=== PATIENT | male | born 1990 | race Hispanic/Latino ===

== ENCOUNTER 2019-08-08 07:46 | Inpatient (IN) | payer SELFPAY ==
[2019-08-08] MEDS ORDERED: Ondansetron PF 4 MG/2 ML Vial ONE (08:28)
[2019-08-08] MEDS ORDERED: Morphine 4 MG/ML VIAL ONE (08:28)
[2019-08-08] MEDS ORDERED: Acetaminophen 500 MG TAB ONE (08:28)
[2019-08-08 09:29] LABS: Anion Gap 11 mmol/L (10-20); BUN (Urea Nitrogen) 5 mg/dL (8.9-20.6); Calc. Creatinine Clearance 0 mL/min (70-130); Carbon Dioxide 27 mmol/L (22-29); Chloride 105 mmol/L (98-107); Estimated GFR-MDRD Greater than 90; Glucose 96 mg/dL (70-105); Potassium 4.4 mmol/L (3.5-5.1); Sodium 139 mmol/L (136-145)
[2019-08-08 09:41] LABS: #Eosinphils 0.1 thou/uL (0.0-0.7); #Lymphocytes 1.8 thou/uL (1.20-3.40); #Monocytes 1.1 thou/uL (0.11-0.59); #Neutrophils 8.3 thou/uL (1.40-6.50); %Basophils 0.1 % (0.0-1.0); %Eosinophils 0.5 % (0.0-10.0); %Lymphocytes 15.9 % (21.0-51.0); %Monocytes 9.4 % (0.0-10.0); %Neutrophils 74.1 % (42.0-75.0); Hemoglobin 13.1 g/dL (14.0-18.0); Mean Corpuscular HGB CONC 33.5 g/dL (32.0-36.0); Mean Corpuscular Hemoglobin 30.3 pg (27.0-31.0); Mean Corpuscular Volume 90.4 fL (78.0-98.0); Mean Platelet Volume 9.4 fL (7.4-10.4); Platelet Count 209 thou/uL (130-400); RBC Distribution Width 11.2 % (11.5-14.5); Red Blood Cell (RBC) Count 4.32 mill/uL (4.70-6.10); White Blood Cell (WBC) Count 11.2 thou/uL (4.8-10.8)
[2019-08-08] MEDS ORDERED: Ondansetron PF 4 MG/2 ML Vial IVP PRN (10:15)
[2019-08-08] MEDS ORDERED: Ondansetron ODT 4 MG TAB PO PRN (10:15)
[2019-08-08] MEDS ORDERED: Sodium Chloride 0.9% 1,000 ML IV SCH (10:15)
[2019-08-08] MEDS ORDERED: Morphine 2 MG/ML SYRINGE SLOW IVP PRN (10:21)
[2019-08-08 10:48] VITALS: BMI 18.8
--- NOTE | 2019-08-08 11:04 | PDOC.HHP ---
Hospitalist HPI - History of Present Illness Dental pain History of Present Illness: PCP: LISA The patient is a 28/M with no significant PMH presents for above complaint. Patient reports developing left sided dental pain and facial swelling for two weeks. Reports associated trismus and fever/chills over the past 4 days. Denies any SOB or difficulty breathing. He was prescribed several oral antibiotics over the past week, including clarithromycin, ciprofloxacin and amoxicillin with no improvement of symptoms. He called his dentist in [place] and was told to go to the Emergency Department. Reports able to eat soup and soft foods, denies any nausea, vomiting or diarrhea. 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 There is adjacent surrounding inflammatory changes with a loculated fluid collection/ abscess along the inferior aspect of the left angle the mandible adjacent to and possibly involving the inferior posterior aspect of the masseter muscle. [facility] ER T 101.1F, HR 92 WBC 10.0 2L IVF Morphine, tylenol and zofran blood cultures drawn Hospitalist ROS - Review of Systems Constitutional: reports: fever, chills Eyes: denies: pain, vision change, conjunctivae inflammation, eyelid inflammation, redness, other ENT: reports: mouth pain, mouth swelling. denies: ear discharge, nose congestion Respiratory: denies: cough, dry, shortness of breath, hemoptysis, SOB with excertion, pleuritic pain, sputum, wheezing, other Cardiovascular: denies: chest pain, palpitations, orthopnea, paroxysmal noc. dyspnea, edema, light headedness, other Gastrointestinal: denies: nausea, vomiting, abdominal pain, diarrhea, constipation, melena, hematochezia, other Genitourinary: denies: dysuria, frequency, incontinence, hematuria, retention, other Musculoskeletal: reports: neck pain Neurological: denies: weakness, numbness, incoordination, change in speech, confusion, seizures, other Hospitalist History - Past Medical History Source: patient, family Cardiac: reports: no pertinent history Pulmonary: reports: no pertinent history [employer]: reports: no pertinent history Gastrointestinal: reports: no pertinent history Heme/Onc: reports: no pertinent history Hepatobiliary: reports: no pertinent history Psych: reports: no pertinent history Musculoskeletal: reports: no pertinent history Rheumatologic: reports: no pertinent history Infectious Disease: reports: no pertinent history ENT: reports: no pertinent history Renal/: reports: no pertinent history Endocrine: reports: no pertinent history Dermatology: reports: no pertinent history - Past Surgical History Past Surgical History: reports: Hernia Repair (as child) - Family History Family History: reports: no pertinent history - Social History Smoking Status: Never smoker Alcohol: reports: None Drugs: reports: none Living Situation: With Family (Lives in [place] with girlfriend) Activity level: independent ambulation - Exam General Appearance: NAD, awake alert ENT: normocephalic atraumatic ENT - other findings: Left facial swelling with some erythema, TTP, trismus Neck - other findings: Left side of neck soft tissue swelling, TTP, mild erythema Heart: RRR, no murmur, no gallops, no rubs Respiratory: CTAB, no wheezes, no rales, no ronchi Gastrointestinal: soft, non-tender, non-distended, normal bowel sounds, no guarding, no rigidity Extremities: no cyanosis, no clubbing, no edema Skin: normal turgor Musculoskeletal: normal tone, normal strength Psychiatric: normal affect, A&O x 3 Hospitalist Results - Labs Result Diagrams: 08/08/19 08:44 08/08/19 08:44 Lab results: WBC 11.2 thou/uL (4.8-10.8) H 08/08/19 08:44 Hgb 13.1 g/dL (14.0-18.0) L 08/08/19 08:44 Hct 39.1 % (42.0-52.0) L 08/08/19 08:44 MCV 90.4 fL (78.0-98.0) 08/08/19 08:44 Plt Count 209 thou/uL (130-400) 08/08/19 08:44 Neutrophils % 74.1 % (42.0-75.0) 08/08/19 08:44 Sodium 139 mmol/L (136-145) 08/08/19 08:44 Potassium 4.4 mmol/L (3.5-5.1) 08/08/19 08:44 Chloride 105 mmol/L (98-107) 08/08/19 08:44 Carbon Dioxide 27 mmol/L (22-29) 08/08/19 08:44 BUN 5 mg/dL (8.9-20.6) L 08/08/19 08:44 Creatinine 0.79 mg/dL (0.7-1.3) 08/08/19 08:44 Glucose 96 mg/dL (70-105) 08/08/19 08:44 Calcium 9.0 mg/dL (7.8-10.44) 08/08/19 08:44 Hospitalist H&P A/P - Plan Plan: Impression: Sepsis Left mandibular abscess Plan: IV antibiotics IVF Consult OMF surgery Awaiting blood cultures Analgesia and Fever control NPO GI prophylaxis DVT prophylaxis, starting tomorrow BMP, CBC in am Full Code Mahendra BENITEZ, .
[2019-08-08] MEDS: Ketorolac Tromethamine 30 MG/ML VIAL IVP PRN ×2 (12:37→17:42)
[2019-08-08] MEDS: Sodium Chloride 0.9% 1,000 ML IV SCH (12:39)
[2019-08-08] MEDS: Clindamycin/D5W 900 MG in Premix Bag 1 BAG IVPB SCH ×2 (12:46→20:27)
[2019-08-08] MEDS ORDERED: Vancomycin 1 GM in Premix Bag 1 BAG IVPB SCH (17:00)
[2019-08-08] MEDS: Famotidine/PF 20 mg/2ml Vial SLOW IVP SCH (20:29)
[2019-08-08] MEDS: Morphine 2 MG/ML SYRINGE SLOW IVP PRN (20:29)
[2019-08-08] MEDS ORDERED: Acetaminophen 650 MG Suppository PR PRN (20:46)
[2019-08-08] MEDS: Acetaminophen 325 MG TAB PO PRN (21:18)
[2019-08-08 21:32] LABS: Lactic Acid 0.7 mmol/L (0.5-2.2)
[2019-08-09] MEDS: Ketorolac Tromethamine 30 MG/ML VIAL IVP PRN ×3 (01:16→18:51)
[2019-08-09] MEDS: Sodium Chloride 0.9% 1,000 ML IV SCH ×3 (01:22→21:07)
[2019-08-09] MEDS: Clindamycin/D5W 900 MG in Premix Bag 1 BAG IVPB SCH ×3 (03:41→20:58)
[2019-08-09 05:13] LABS: #Lymphocytes 0.7 thou/uL (1.20-3.40); #Monocytes 0.2 thou/uL (0.11-0.59); #Neutrophils 10.2 thou/uL (1.40-6.50); %Basophils 0.1 % (0.0-1.0); %Eosinophils 0.2 % (0.0-10.0); %Lymphocytes 6.6 % (21.0-51.0); %Monocytes 1.7 % (0.0-10.0); %Neutrophils 91.5 % (42.0-75.0); Hemoglobin 12.7 g/dL (14.0-18.0); Mean Corpuscular HGB CONC 34.5 g/dL (32.0-36.0); Mean Corpuscular Hemoglobin 30.9 pg (27.0-31.0); Mean Corpuscular Volume 89.8 fL (78.0-98.0); Mean Platelet Volume 9.2 fL (7.4-10.4); Platelet Count 211 thou/uL (130-400); RBC Distribution Width 10.9 % (11.5-14.5); Red Blood Cell (RBC) Count 4.12 mill/uL (4.70-6.10); White Blood Cell (WBC) Count 11.1 thou/uL (4.8-10.8)
[2019-08-09 05:23] LABS: Anion Gap 12 mmol/L (10-20); BUN (Urea Nitrogen) 5 mg/dL (8.9-20.6); Calc. Creatinine Clearance 116 mL/min (70-130); Calcium 9.2 mg/dL (7.8-10.44); Carbon Dioxide 25 mmol/L (22-29); Chloride 107 mmol/L (98-107); Estimated GFR-MDRD Greater than 90; Glucose 146 mg/dL (70-105); Potassium 4.4 mmol/L (3.5-5.1); Sodium 140 mmol/L (136-145)
[2019-08-09] MEDS ORDERED: Acetaminophen 650 MG/20.3 ML UDCUP PO PRN (07:56)
[2019-08-09] MEDS ORDERED: Enoxaparin Sodium 40 MG/0.4 ML SYRINGE SC SCH ×2 (09:00→21:00)
[2019-08-09] MEDS: Famotidine/PF 20 mg/2ml Vial SLOW IVP SCH ×2 (09:58→19:42)
[2019-08-09] MEDS: Saccharomyces boulardii 250 MG CAP PO SCH (10:17)
--- NOTE | 2019-08-09 10:51 | PDOC.HOSPP ---
- Subjective Encounter Date: 08/09/19 Encounter Time: 10:45 Subjective: Patient seen and examined for sepsis, left mandibular abscess. Reports mildly elevated temperature last night. Reports pain controlled with steroids and toradol. Overall feeling much better. No new complaints. - Objective Vital Signs & Weight: Vital Signs (12 hours) Temp Pulse Resp BP Pulse Ox 08/09/19 08:00 97.9 F 76 18 121/60 100 08/09/19 03:49 97.3 F L 65 14 103/51 L 97 08/08/19 23:55 99.2 F 74 16 120/55 L 98 Weight Weight 120 lb Result Diagrams: 08/09/19 04:25 08/09/19 04:25 Hospitalist ROS - Review of Systems Constitutional: reports: fever, chills ENT: reports: other (able to control secretions) Respiratory: reports: cough, shortness of breath (no stridor) Cardiovascular: reports: chest pain, palpitations Gastrointestinal: reports: nausea, vomiting - Medication Medications: Active Medications Generic Name Dose Route Start Last Admin Trade Name Freq PRN Reason Stop Dose Admin Acetaminophen 650 mg 08/08/19 20:46 08/08/19 21:18 Tylenol PO 650 mg Q4H PRN Administration Headache/Fever or Pain Famotidine 20 mg 08/08/19 21:00 08/09/19 09:58 Pepcid SLOW IVP 20 mg Q12HR YANIRA Administration Clindamycin Phosphate/Dextrose 50 mls @ 100 mls/hr 08/08/19 12:00 08/09/19 03 :41 900 mg/ Device IVPB 50 mls 0400,1200,2000 YANIRA Administration Sodium Chloride 1,000 mls @ 100 mls/hr 08/08/19 12:01 08/09/19 01:22 Normal Saline 0.9% IV 1,000 mls .Q10H YANIRA Administration Ketorolac Tromethamine 15 mg 08/08/19 11:04 08/09/19 09:56 Toradol IVP 08/13/19 11:05 15 mg Q6H PRN Administration Pain (1-5) &/or fever 100.4f Morphine Sulfate 2 mg 08/08/19 11:05 08/08/19 20:29 Morphine SLOW IVP 2 mg Q3H PRN Administration Moderate to Severe Pain (6-10) Saccharomyces Boulardii 250 mg 08/09/19 09:00 08/09/19 10:17 Florastor PO Not Given DAILY YANIRA Sodium Chloride 10 ml 08/09/19 09:00 08/09/19 10:11 Flush - Normal Saline IVF 10 ml Q12HR YANIRA Administration - Exam General Appearance: NAD, awake alert Neck - other findings: Soft tissue swelling to left mandibular region & neck, mildly TTP, trismus Heart: RRR, no murmur, no gallops, no rubs Respiratory: CTAB, no wheezes, no rales, no ronchi Musculoskeletal: normal tone, normal strength Psychiatric: normal affect, A&O x 3 Hosp A/P - Plan Impression: Left mandibular abscess Sepsis Plan: Continue IV antibiotics Analgesia as needed Cultures no growth at 24 hours OMF surgery consult appreciated NPO Procedural I&D with tooth extractions -Dr. Joyce GI/DVT prophylaxis
[2019-08-09] MEDS ORDERED: Glycopyrrolate 0.2 MG/ML 5 ML SYRINGE ONE (11:49)
[2019-08-09] MEDS ORDERED: PROPOFOL 200 MG/20 ML VIAL ONE (11:49)
[2019-08-09] MEDS ORDERED: Dexamethasone 20 MG/5 ML VIAL ONE (11:49)
[2019-08-09] MEDS ORDERED: Ondansetron PF 4 MG/2 ML Vial ONE (11:49)
[2019-08-09] MEDS ORDERED: Lidocaine 1% PF 5 ML VIAL ONE (11:49)
[2019-08-09] MEDS: Morphine 2 MG/ML SYRINGE SLOW IVP PRN ×2 (12:53→18:15)
[2019-08-09] MEDS ORDERED: Fentanyl 100 MCG/2 ML VIAL ONE ×2 (14:57→17:19)
[2019-08-09] MEDS ORDERED: SUGAMMADEX SODIUM 200 MG/2 ML VIAL ONE (14:57)
[2019-08-09] MEDS ORDERED: Lidocaine 1% w/Epinephrine 1:100K 20 ML VIAL ONE (15:20)
[2019-08-09] MEDS ORDERED: Sodium Chloride 0.9% 10 ML ONE (15:20)
[2019-08-09] MEDS ORDERED: Bacitracin Zinc Ointment 30 gm TUBE ONE (15:20)
[2019-08-09] MEDS ORDERED: Chlorhexidine Gluconate 15 ML UDCUP SSP ONE (15:20)
[2019-08-09] MEDS ORDERED: Lidocaine 2% Jelly 5 ML TUBE ONE (15:22)
[2019-08-09] MEDS ORDERED: AFRIN NASAL MIST 15 ML BOT ONE (15:22)
[2019-08-09] MEDS ORDERED: Promethazine HCl 25 MG/ML VIAL SLOW IVP PRN (16:29)
[2019-08-09] MEDS ORDERED: Ketorolac Tromethamine 30 MG/ML VIAL IVP PRN (16:29)
[2019-08-09] MEDS ORDERED: Ondansetron HCl/PF 4 MG/2 ML Vial IVP PRN (16:29)
[2019-08-09] MEDS ORDERED: Meperidine HCl/PF 25 MG/ML VIAL SLOW IVP PRN (16:29)
[2019-08-09] MEDS ORDERED: Promethazine HCl 25 MG/ML VIAL ONE (17:19)
[2019-08-09] MEDS ORDERED: Hydrocodone-Acetamin 15 ML UDCUP PO PRN (19:18)
[2019-08-09] MEDS: Morphine 4 MG/ML VIAL SLOW IVP PRN ×2 (19:41→23:42)
[2019-08-09] MEDS: Hydrocodone-Acetamin 15 ML UDCUP PO PRN (20:57)
[2019-08-09] MEDS: Chlorhexidine Gluconate 15 ML UDCUP SSP SCH (20:59)
[2019-08-10] MEDS: Clindamycin/D5W 900 MG in Premix Bag 1 BAG IVPB SCH ×3 (03:00→20:32)
[2019-08-10] MEDS: Hydrocodone-Acetamin 15 ML UDCUP PO PRN ×4 (03:00→23:28)
[2019-08-10] MEDS: Sodium Chloride 0.9% 1,000 ML IV SCH ×3 (04:15→23:29)
[2019-08-10] MEDS: Morphine 4 MG/ML VIAL SLOW IVP PRN (06:32)
[2019-08-10] MEDS: Famotidine/PF 20 mg/2ml Vial SLOW IVP SCH ×2 (09:13→20:23)
[2019-08-10] MEDS: Chlorhexidine Gluconate 15 ML UDCUP SSP SCH ×2 (09:14→20:32)
[2019-08-10] MEDS: Saccharomyces boulardii 250 MG CAP PO SCH (09:14)
--- NOTE | 2019-08-10 10:26 | PDOC.HOSPP ---
- Subjective Encounter Date: 08/10/19 Encounter Time: 10:10 Subjective: Patient seen and examined for sepsis, left neck abscess. s/p I&D, POD #1. Reports pain well controlled. Denies any difficulty swallowing or breathing. Tolerating CL diet. No fevers or chills. No new complaints. No overnight events. - Objective Vital Signs & Weight: Vital Signs (12 hours) Temp Pulse Resp BP Pulse Ox 08/10/19 09:23 99 08/10/19 08:44 97.0 F L 54 L 16 117/71 99 08/10/19 03:45 97.5 F L 96 16 122/85 99 08/09/19 23:36 98.5 F 97 16 134/60 98 Weight Admit Weight 120 lb Weight 120 lb I&O: 08/09/19 08/10/19 08/11/19 06:59 06:59 06:59 Intake Total 1200 Balance 1200 Result Diagrams: 08/09/19 04:25 08/09/19 04:25 Hospitalist ROS - Review of Systems Constitutional: denies: fever, chills, sweats, weakness, malaise, other Respiratory: reports: shortness of breath Cardiovascular: denies: chest pain, palpitations, orthopnea, paroxysmal noc. dyspnea, edema, light headedness, other Gastrointestinal: denies: nausea, vomiting, abdominal pain, diarrhea, constipation, melena, hematochezia, other Other: no dysphagia - Medication Medications: Active Medications Generic Name Dose Route Start Last Admin Trade Name Freq PRN Reason Stop Dose Admin Acetaminophen 650 mg 08/08/19 20:46 08/08/19 21:18 Tylenol PO 650 mg Q4H PRN Administration Headache/Fever or Pain Hydrocodone Bitart/Acetaminophen 15 ml 08/09/19 19:23 08/10/19 09:26 Hydrocodone-Apap 7.5-325/15 PO 15 ml Q6H PRN Administration Mild-Moderate Pain (1-5) Chlorhexidine Gluconate 15 ml 08/09/19 21:00 08/10/19 09:14 Chlorhexidine Gluconate SSP 15 ml BID YANIRA Administration Famotidine 20 mg 08/08/19 21:00 08/10/19 09:13 Pepcid SLOW IVP 20 mg Q12HR YANIRA Administration Clindamycin Phosphate/Dextrose 50 mls @ 100 mls/hr 08/08/19 12:00 08/10/19 03 :00 900 mg/ Device IVPB 50 mls 0400,1200,2000 YANIRA Administration Sodium Chloride 1,000 mls @ 100 mls/hr 08/08/19 12:01 08/10/19 09:22 Normal Saline 0.9% IV 1,000 mls .Q10H YANIRA Administration Ketorolac Tromethamine 15 mg 08/08/19 11:04 08/09/19 18:51 Toradol IVP 08/13/19 11:05 15 mg Q6H PRN Administration Pain (1-5) &/or fever 100.4f Morphine Sulfate 4 mg 08/09/19 19:17 08/10/19 06:32 Morphine SLOW IVP 4 mg Q4H PRN Administration Severe Pain (7-10) Saccharomyces Boulardii 250 mg 08/09/19 09:00 08/10/19 09:14 Florastor PO Not Given DAILY YANIRA Sodium Chloride 10 ml 08/09/19 09:00 08/10/19 09:14 Flush - Normal Saline IVF 10 ml Q12HR YANIRA Administration - Exam General Appearance: NAD, awake alert Eye: anicteric sclera ENT - other findings: trismus - improving Neck - other findings: Left neck dressing C/D/I Heart: RRR, no murmur, no gallops, no rubs Respiratory: CTAB, no wheezes, no rales, no ronchi Extremities: no edema Neurological: no focal deficits Psychiatric: normal affect, A&O x 3 Hosp A/P - Plan Impression: s/p I&D left neck abscess Left mandibular abscess Sepsis, improved Plan: Continue IV clindamycin Blood cultures negative Abscess cultures pending Dressing changes per orders CL diet, adv as tolerated Analgesia prn GI prophylaxis No DVT prophylaxis, patient ambulatory
[2019-08-10] MEDS: Morphine 2 MG/ML SYRINGE SLOW IVP PRN ×2 (13:12→20:19)
[2019-08-11] MEDS: Ketorolac Tromethamine 30 MG/ML VIAL IVP PRN (03:10)
[2019-08-11] MEDS: Clindamycin/D5W 900 MG in Premix Bag 1 BAG IVPB SCH ×2 (03:11→11:27)
[2019-08-11] MEDS: Hydrocodone-Acetamin 15 ML UDCUP PO PRN ×2 (06:22→12:42)
[2019-08-11 07:57] VITALS: BP 102/58; TEMP 97.7
[2019-08-11] MEDS: Chlorhexidine Gluconate 15 ML UDCUP SSP SCH (08:42)
[2019-08-11] MEDS: Famotidine/PF 20 mg/2ml Vial SLOW IVP SCH (08:43)
[2019-08-11] MEDS: Saccharomyces boulardii 250 MG CAP PO SCH (08:44)
[2019-08-11] MEDS: Morphine 2 MG/ML SYRINGE SLOW IVP PRN (10:42)
[2019-08-11] MEDS: Sodium Chloride 0.9% 1,000 ML IV SCH (11:27)
[2019-08-11] MEDS: Acetaminophen 325 MG TAB PO PRN (15:10)
--- NOTE | 2019-08-11 19:33 | DIS ---
DATE OF ADMISSION: 08/08/2019 DATE OF DISCHARGE: 08/11/2019 DISCHARGE DISPOSITION: Home. FOLLOWUP: 1. Follow up with primary care physician in 1 week. 2. Follow up with oral maxillofacial surgeon, Dr. Joyce, next week. DISCHARGE MEDICATIONS: 1. Chlorhexidine mouthwash 3 times a day. 2. Clindamycin 300 mg 3 times a day for 7 days. 3. Tylenol No. 3 as needed. INPATIENT SLITTER CUT OFF OPERATOR: Meño Joyce DDS. BRIEF HOSPITAL COURSE: The patient is a 28-year-old male, who presented to the emergency room with left facial swelling. CT maxillofacial was consistent with left mandibular abscess. He had a temperature of 101.1 on admission. He was admitted to the medical floor. He was started on IV clindamycin along with IV narcotics for pain control. He underwent incision and drainage of the abscess. Operative report is pending at this time. He has been cleared by oral maxillofacial surgeon for discharge. FINAL DIAGNOSES: 1. Sepsis. 2. Left mandibular abscess, status post incision and drainage. 3. Anemia, chronic. The patient understands the above plan of care. Job ID: [id number]
--- NOTE | 2019-08-11 21:55 | PRG ---
DATE OF SERVICE: SUBJECTIVE: No acute 24-hour events. The patient is voiding, ambulating, and tolerating p.o. The patient feels significantly better. OBJECTIVE: VITAL SIGNS: Have been stable. His T-max is 97.9, pulse is 64, respiration 18, he is saturating 100% on room air, and his blood pressure is 102/58. HEENT: He does still have a moderate amount of trismus; however, the patient feels it is getting a little bit better. He has a small mild amount of purulence still draining from the left neck; however, this has decreased since yesterday. His wounds are intact intraorally. Area of inflammation appears to be decreasing. ASSESSMENT: The patient is doing well, status post incision and drainage, left neck, extraction of teeth. PLAN: Recommend to discharge the patient home on Peridex 15 mL swish and spit t.i.d. for one week as well as clindamycin 300 mg p.o. q.8 hours for one week. FOLLOWUP: The patient is to follow up in my office in 1 week. Job ID: [id number] [facility] CENTERKortney
--- NOTE | 2019-08-14 09:45 | OP ---
DATE OF PROCEDURE: 08/09/2019 PREOPERATIVE DIAGNOSES: 1. Left submandibular abscess. 2. Infected teeth, 17 and 19. POSTOPERATIVE DIAGNOSES: 1. Left submandibular abscess. 2. Infected teeth, 17 and 19. PROCEDURES PERFORMED: 1. Transcervical incision and drainage of left submandibular abscess. 2. Surgical removal of teeth 17 and 19. INDICATIONS FOR PROCEDURE: This is a 28-year-old male, who has a couple-week history of increasing dental pain in the left mandible with subsequent left jaw and neck swelling, who was ultimately referred to the emergency room by his dentist in [place] due to failed outpatient therapy with antibiotics. On evaluation in the hospital, the patient has a large multiloculated left submandibular abscess associated with teeth 17 and 19. He is being brought to the operating room at this time for removal of the teeth and drainage of the abscess. DESCRIPTION OF PROCEDURE: The patient was identified in the preoperative holding area, and all questions were answered. The patient was subsequently transferred to the operating room and transferred to the operating room table without complication. He was subsequently intubated by the Anesthesia Service using a nasal intubation. A surgical time-out was then performed. The face and neck were then prepped sterilely and draped in normal fashion. The oral cavity was subsequently prepped with Peridex oral rinse and tooth brush, and a throat pack was placed at this time. The inferior border of the mandible was marked, and a skin incision was marked about 2.5 cm inferior to the inferior border of the mandible. Local anesthetic was delivered with lidocaine and epinephrine to this planned neck incision site. A 15 blade was then used to make approximately 2 cm skin incision in the left neck. This incision was taken down to the subcutaneous tissues. Bovie cautery was then used to obtain hemostasis, and a combination of blunt and sharp dissection ensued down to the level of the platysma. Ceci hemostats were then used to bluntly dissect to the platysma, and then these Ceci hemostats were turned superiorly towards the inferior border of the mandible and the targeted submandibular abscess. Blunt dissection with a combination of hemostats and fingers was then used to open up the abscess, at which time, significant amounts of foul purulence was obtained. Culture swabs were taken and sent for Gram stain, culture and sensitivities. After decompressing the abscess, finger dissection was used further to ensure that all loculations were broken up and decompressed, and then the abscess was irrigated copiously with normal saline infused with bacitracin. The neck wound was packed off, and the attention was turned intraorally. A hockey-stick incision over bone was made in the tooth 17 region out towards the buccal aspect of that tooth. So, elevator was then used to raise a full-thickness mucoperiosteal flap in this region. Tooth #17 was then elevated with dental elevators and ultimately removed in this fashion. The periapical region was then curetted aggressively to remove all infected granulation tissue, and it was noted that there was a cortical perforation in the lingual aspect periapically. A gingival incision was then made on the facial aspect of the retained carious roots on tooth #19, and these roots were then elevated out with dental elevators as well. The socket of tooth #19 was curetted in a similar fashion. A subperiosteal lingual dissection was also embarked upon to ensure that all purulence had been decompressed from the submandibular and sublingual regions back in the tooth #17 region. This dissection began with a sulcular incision forward to approximately the tooth #29 region and a subperiosteal dissection down towards the inferior border throughout the posterior left mandible. The sockets and the surgical wounds inside the mouth were also irrigated copiously with bacitracin infused normal saline, and the wounds were loosely reapproximated with 4-0 chromic gut sutures. The oral cavity was irrigated and suctioned free of debris, and the throat pack was removed at this time. Attention was turned back to the neck, and one more round of an irrigation with the bacitracin infused normal saline ensued through the neck wound, and then quarter-inch Alpine drains were placed into the neck wound. One of these wounds continued into the submandibular space towards the lingual aspect of the mandible, and one of the drains continued up through the submandibular space into roughly the submasseteric space region. These Alpine drains were tacked to the skin with 2-0 Vicryl drain stitch. The neck and face were then cleaned. A gauze pressure pack was placed intraorally over the tooth 17 region with a long extraoral tail, and the neck was then wrapped with a Kerlix fluff dressing. The patient was turned over to Anesthesia for emergence and extubation, which ensued without complication. INTRAVENOUS FLUIDS: Please see anesthetic record. ESTIMATED BLOOD LOSS: 25 mL. COMPLICATIONS: None. SPECIMENS: Purulence from the left submandibular space for Gram stain, culture and sensitivity. IMPLANTS: No permanent implants were placed. DRAINS: Two quarter-inch Alpine drains to the submandibular space via the transcervical incision. FINDINGS: Large amounts of foul purulence from the multiloculated left submandibular space abscess, and teeth 17 and 19 with gross signs of infection. DISPOSITION: The patient tolerated the procedure well. He was extubated and transferred to the recovery room in good condition. Job ID: [id number]
[2019-08-16 07:13] LABS: Fungus Stain Final report (.)
[2019-09-14 07:37] LABS: Fungus Culture Final report (.)
--- NOTE | 2019-10-01 18:58 | CON ---
DATE OF CONSULTATION: 08/08/2019 CONSULTED BY: Hospitalist Service. HISTORY OF PRESENT ILLNESS: This is a 28-year-old males who has a couple-week history of dental pain in the left mandible, which subsequently progressed to facial swelling. He reports increasing expansion of the swelling associated with trismus and subjective fever and chills over the past 3 to 4 days. The patient was in communication with his dentist in [place], and was placed on a couple of rounds of antibiotics without improvement and with subsequent exacerbation. His last communication with his dentist in [place] resulted in a dentist informing him that he should present to the emergency department in [place], and he was ultimately transferred to [facility] for higher level of care. I was consulted after he is admitted for evaluation and management. The patient reports having significant pain in the left neck and left jaw region with significant swelling as well. The patient reports discomfort on swallowing, but no difficulty breathing or pain on breathing. Positive for trismus. Positive for subjective fevers and chills. PAST MEDICAL HISTORY: Noncontributory. PAST SURGICAL HISTORY: Hernia repair. HOME MEDICATIONS: None. ALLERGIES: NO KNOWN DRUG ALLERGIES. SOCIAL HISTORY: Denies smoking, alcohol, or drugs. FAMILY HISTORY: Negative. PHYSICAL EXAMINATION: VITAL SIGNS: Temperature of 101.1 in the emergency room, heart rate 92, otherwise vital signs within normal limits at this time. GENERAL: The patient appears uncomfortable in bed with significant difficulty opening his mouth. Overall, the patient is not in any significant distress. HEAD AND NECK: The patient has significant edema and induration with overlying erythema of the skin involving the left submandibular space and continued up over to the lateral aspect of the mandible region. The patient has significant trismus, can only open about the fingers width. The patient is noted to be breathing without difficulty and handling his secretions without issues. Examination intraorally, this is limited due to the trismus, but the patient is noted to have a partially exposed tooth #17 with significant erythema and edema of the pericoronal soft tissues in this region. The patient also had a grossly carious tooth #19 with essentially just retained roots. The patient has a vestibular fullness in the tooth 17 area as well. Difficult to fully evaluate the oropharynx, but the floor of mouth appears relatively soft without significant gross swelling. LABORATORY VALUES: White blood cell count 11.2, hemoglobin 13.1, and platelets of 209. Metabolic panel without significant abnormalities. CT scan of the face and neck shows a large multiloculated left submandibular abscess, which appears to be associated with predominantly tooth 17, but with tooth #19 potentially playing a part. Tooth 17 is noted to have periapical radiolucency, which appears area of the beginning of the multiloculated abscess. The airway is without significant deviation . ASSESSMENT: 1. Large, multiloculated left submandibular abscess. 2. Infected teeth 17 and 19. PLAN: 1. The patient will be kept n.p.o. and plan will be to take the patient to the operating room tomorrow for removal of the infected teeth 17 and 19, as well as incision and drainage of left submandibular abscess. 2. The patient should be kept on IV antibiotics and continued on the Peridex oral rinses b.i.d. 3. IV fluids and pain management per the primary hospitalist service. Job ID: [id number]
== END 2019-08-11 18:00 | disposition home or self-care (01) | DRG 854 ==
LOC: ERS 07:46 → ERHOLD 08:28 → ONC 10:15
PROVIDERS: ADMIT Internal Medicine; ATTEND Internal Medicine
PROC: 0CTX0Z1 Resection of Lower Tooth, Multiple, Open Approach (ICD-10-PCS; principal; 2019-08-09)
PROC: 0J910ZZ Drainage of Face Subcutaneous Tissue and Fascia, Open Approach (ICD-10-PCS; 2019-08-09)
DX: A41.9 Sepsis, unspecified organism (principal); K12.2 Cellulitis and abscess of mouth; M27.2 Inflammatory conditions of jaws; D64.9 Anemia, unspecified; Z98.890 Other specified postprocedural states; K04.99 Other diseases of pulp and periapical tissues
CPT/HCPCS: 36415; 80048; 83605; 85025; 87040; 87070; 87076; 87077; 87102; 87205; 87206; 94760; 96361; 96374; 96375; J1100; J1885; J2001; J2270; J2405; J2550; J2704; J3010; J3490; S0028